=== PATIENT | male | born 2000 | race Caucasian/White ===

== ENCOUNTER 2020-11-04 22:16 | Emergency (ER) | payer SELFPAY ==
[~2020-11-04 22:16] MED LIST: CLEOCIN HCL300 MG PO; CYCLOBENZAPRINE10 MG PO; DELSYM30 MG/5 ML PO; FLONASE 0.05% N16 GM; NAPROSYN500 MG PO; REGLAN10 MG PO; ZYRTEC10 MG PO
== END 2020-11-04 23:00 | disposition home or self-care (01) ==
LOC: ER1 22:16
DX: J06.9 Acute upper respiratory infection, unspecified (principal); F17.210 Nicotine dependence, cigarettes, uncomplicated
CPT/HCPCS: 99282